=== PATIENT | male | born 1980 | race Caucasian/White ===

== ENCOUNTER 2018-10-04 22:38 | Emergency (ER) | payer OTHER ==
[2018-10-04 22:55] VITALS: BP 124/60; PULSE 113; TEMP 99.1; BMI 28.1
--- NOTE | 2018-10-04 23:39 | PDOC ---
History of Present Illness - General Chief Complaint: Injury Stated Complaint: RIGHT HAND INJURY Time Seen by Provider: 10/04/18 23:01 History Source: Patient Exam Limitations: No Limitations - History of Present Illness Initial Comments: 10/05/18 03:38 38-year-old male who is right hand dominant presents to the emergency department complaining of right hand pain. Patient states as he was walking, he slipped and fell onto the dorsal aspect of his right hand. Pain is described as 3/10 dull nonradiating intermittent discomfort. Patient states ice application makes the pain feel much better. He denies extremity numbness or tingling sensation, patient denies head, neck or back pain. Patient denies any other complaints. Patient states he had a boxer's fracture when he was a teenager. Past History - Past Medical History Allergies/Adverse Reactions: Allergies Allergy/AdvReac Type Severity Reaction Status Date / Time No Known Allergies Allergy Verified 10/05/18 00:03 Home Medications: Ambulatory Orders NK [No Known Home Medication] 10/05/18 - Suicide/Smoking/Psychosocial Hx Smoking History: Unknown if ever smoked Information on smoking cessation initiated: No Hx Alcohol Use: No Drug/Substance Use Hx: No Review of Systems - Review of Systems Able to Perform ROS?: Yes Comments:: 10/05/18 03:39 CONSTITUTIONAL: Absent: fever, chills, diaphoresis, generalized weakness, malaise, loss of appetite MUSCULOSKELETAL: Right dorsal hand pain Absent: myalgia, arthralgia, joint swelling SKIN: Absent: rash, itching, pallor HEMATOLOGIC/IMMUNOLOGIC: Absent: easy bleeding, easy bruising, lymphadenopathy, frequent infections Is the patient limited [place] proficient: No *Physical Exam - Vital Signs Last Vital Signs Temp Pulse Resp BP Pulse Ox 99.1 F 113 H 20 124/60 96 10/04/18 22:51 10/04/18 22:51 10/04/18 22:51 10/04/18 22:51 10/04/18 22:51 - Physical Exam Comments: 10/05/18 03:40 Right hand Decreased range of motion due to swelling and slight pain to the third distal metacarpal Capillary refill less than 2 seconds No obvious deformity Right wrist: Full range of motion, 2+ radial pulse Moderate Sedation - Procedure Monitoring Vital Signs: Procedure Monitoring Vital Signs Temperature 99.1 F 10/04/18 22:51 Pulse Rate 113 H 10/04/18 22:51 Respiratory Rate 20 10/04/18 22:51 Blood Pressure 124/60 10/04/18 22:51 O2 Sat by Pulse Oximetry (%) 96 10/04/18 22:51 ED Treatment Course - RADIOLOGY Radiology Studies Ordered: Category Date Time Status HAND- RIGHT [RAD] Stat Radiology 10/04/18 23:02 Taken *DC/Admit/Observation/Transfer Diagnosis at time of Disposition: Contusion of right hand Qualifiers: Encounter type: initial encounter Qualified Code(s): S60.221A - Contusion of right hand, initial encounter - Discharge Dispostion Disposition: HOME Condition at time of disposition: Stable Decision to Admit order: No - Referrals Referrals: Galen Arguello DO [Staff Physician] - - Patient Instructions Printed Discharge Instructions: DI for Contusion Additional Instructions: Ice; 20 mins on alternating with 20 mins off for 48 hours while awake. Rest Elevate Follow up with your orthopedic surgeon or the one listed on the discharge form. Return to the ER for severe/persistent/worsening symptoms, extremity numbness/ tingling sensation. - Post Discharge Activity
== END 2018-10-05 00:06 | disposition home or self-care (01) ==
LOC: JER 22:38
DX: S60.221A Contusion of right hand, initial encounter (principal); W01.0XXA Fall on same level from slipping, tripping and stumbling without subsequent striking against object, initial encounter; Y93.01 Activity, walking, marching and hiking; Y92.89 Other specified places as the place of occurrence of the external cause; Y99.8 Other external cause status
CPT/HCPCS: 73130-TC-RT-FY; 99282-25